=== PATIENT | female | born 1990 | race Caucasian/White ===

== ENCOUNTER 2018-08-23 21:46 | Outpatient (CLI) | payer OTHER ==
--- NOTE | 2018-08-23 22:34 | Ultrasound Report ---
Reason: TEST POSITIVE Procedure Date: 08/23/2018 Accession Number: [id number] / [id number] Procedure: US - OB First Trimester CPT Code: FULL RESULT: EXAM: FIRST TRIMESTER OBSTETRIC ULTRASOUND (Less than 11 weeks) EXAM DATE: 08/23/2018 10:17 PM. CLINICAL HISTORY: TEST POSITIVE. LMP: 06/08/2018. COMPARISONS: None. TECHNIQUE: Transabdominal and transvaginal ultrasound examination with static image documentation. CLINICAL DATES: EGA 10 weeks 6 days with JOSE RAUL 03/17/2019 based on provider dating. ASSESSMENT: Gestational Sac: Single intrauterine. Mean gestational sac diameter: 99 mm. Embryo: CRL (crown-rump length) 36 mm = 10 weeks 2 days. Cardiac activity: 169 beats per minute. Yolk sac: 6.6 mm. Amniotic fluid: Not accurately assessed at this gestational age. Early placenta: Not visible at this gestational age. Other: No perigestational fluid collection demonstrated. MATERNAL STRUCTURES: Uterus: Anteverted. Unremarkable. Cervix: Closed. Right Ovary/Adnexa: The ovary measures 3.6 x 2.4 x 1.7 cm, volume 8 cc. 2 cm right corpus luteum.. Left Ovary/Adnexa: The ovary measures 3.9 x 2.9 x 2.2 cm, volume 13 cc. Unremarkable. Free Fluid: None. Other: None. IMPRESSION: 1. Single viable intrauterine at EGA 10 weeks 2 days with JOSE RAUL 03/19/2019 based on crown-rump length. 2. Assigned dating is JOSE RAUL 03/19/2019 based on current ultrasound. RADIA ADDENDUM: 08/23/18 22:36 The above findings were discussed with Kymberly Mendoza by Dr. Marcello Burks at 10:36 PM hrs on 08/23/2018.
== END 2018-08-23 21:47 | disposition home or self-care (01) ==
LOC: DI 21:46
PROVIDERS: ATTEND Registered Nurse
DX: Z32.01 Encounter for pregnancy test, result positive (principal); Z3A.10 10 weeks gestation of pregnancy
CPT/HCPCS: 76801

== ENCOUNTER 2018-09-08 14:10 | Outpatient (CLI) | payer OTHER ==
[2018-09-08 15:24] LABS: MUDS CUTOFF CONCENTRATIONS CUTOFF CONC BELOW:
[2018-09-08 15:59] LABS: AMPHETAMINE SCREEN,URINE NEGATIVE (NEGATIVE); BENZODIAZEPINES SCREEN, URINE NEGATIVE (NEGATIVE); COCAINE SCREEN URINE NEGATIVE (NEGATIVE); METHADONE SCREEN, URINE NEGATIVE (NEGATIVE); METHAMPHETAMINES SCREEN, URINE NEGATIVE (NEGATIVE); OPIATE SCREEN, URINE NEGATIVE (NEGATIVE); OXYCODONE SCREEN, URINE NEGATIVE (NEGATIVE); PROPOXYPHENE SCREEN, URINE NEGATIVE (NEGATIVE); TRICYCLIC ANTIDEPRESSANT,URINE NEGATIVE (NEGATIVE)
== END 2018-09-08 23:59 | disposition home or self-care (01) ==
LOC: LAB.R 14:10
PROVIDERS: ATTEND Registered Nurse
DX: Z33.1 Pregnant state, incidental (principal)
CPT/HCPCS: 80306

== ENCOUNTER 2018-09-09 12:00 | Outpatient (CLI) | payer OTHER ==
[2018-09-09 19:54] LABS: BASOPHILS % (AUTO) 0.3 %; EOSINOPHILS % (AUTO) 0.3 %; HGB - HEMOGLOBIN 12.6 g/dL (12.0-16.0); LYMPHOCYTES # (AUTO) 1.2 10^3/uL (1.5-3.5); LYMPHOCYTES % (AUTO) 12.6 %; MEAN CORPUSCULAR HEMOGLOBIN 28.6 pg (27.0-31.0); MEAN CORPUSCULAR HGB CONC 34.6 g/dL (32.0-36.0); MEAN CORPUSCULAR VOLUME 82.6 fL (81.0-99.0); MEAN PLATELET VOLUME 8.9 fL (7.9-10.8); MONOCYTES # (AUTO) 0.4 10^3/uL (0.0-1.0); MONOCYTES % (AUTO) 4.3 %; NEUTROPHILS # (AUTO) 7.6 10^3/uL (1.5-6.6); NEUTROPHILS % (AUTO) 82.5 %; PLT - PLATELET COUNT 260 10^3/uL (130-450); RED CELL DISTRIBUTION WIDTH 13.6 % (12.0-15.0); WHITE BLOOD COUNT 9.2 x10^3/uL (4.8-10.8)
[2018-09-10 12:02] LABS: HEPATITIS B SURFACE ANTIGEN NON-REACTIVE (NON-REACTIVE); HEPATITIS C ANTIBODY NON-REACTIVE (NON-REACTIVE)
[2018-09-10 13:20] LABS: HIV AG/AB 4TH GEN NON-REACTIVE (NON-REACTIVE)
== END 2018-09-09 23:59 | disposition home or self-care (01) ==
LOC: LAB.N 12:00
PROVIDERS: ATTEND Registered Nurse
DX: Z33.1 Pregnant state, incidental (principal)
CPT/HCPCS: 36415; 81599; 85025; 86592; 86762; 86803; 86850; 86900; 86901; 87340; 87389

== ENCOUNTER 2018-09-10 10:17 | Outpatient (CLI) | payer OTHER | END 2018-09-10 23:59 | disposition home or self-care (01) | LOC: LAB.R 10:17 | PROVIDERS: ATTEND Registered Nurse | DX: Z33.1 Pregnant state, incidental (principal) | CPT/HCPCS: 87491; 87591 ==

== ENCOUNTER 2018-11-29 13:37 | Outpatient (CLI) | payer OTHER ==
--- NOTE | 2018-12-02 11:30 | Ultrasound Report ---
Reason: ENCOUNTER FOR OTHER SPECIFIED SCREENING Procedure Date: 11/29/2018 Accession Number: [id number] / [id number] Procedure: US - OB Detailed Eval CPT Code: FULL RESULT: EXAM: COMPLETE OBSTETRICAL ULTRASOUND EXAM DATE: 11/29/2018 03:58 PM. CLINICAL HISTORY: anatomic survey. COMPARISON: None. TECHNIQUE: Real-time sonographic evaluation of the fetus performed by the rolling mill operator. Multiple sales representative womens health static images were saved for review. DATING: Established EGA 24 weeks 4 days with JOSE RAUL 03/17/2019 based on working due date. EGA 24 weeks 2 days with JOSE RAUL 03/19/2019 based on first ultrasound. EGA 24 weeks 2 days with JOSE RAUL 03/19/2019 based on the current ultrasound. GENERAL EVALUATION Oh . Cardiac activity: 139 bpm. movement: Visualized. Presentation: Vertex. Placenta: Laterally to the left and partially anterior position. No evidence for previa. Umbilical cord: 3 vessel cord. Central placental cord origin. Amniotic fluid: Subjectively normal. MVP 4.5 cm. BIOMETRY Bi-Parietal Diameter (BPD): 5.9 cm, 24 weeks 2 days Head Circumference (HC): 22.3 cm, 24 weeks 3 days Abdominal Circumference (AC): 19.7 cm, 24 weeks 2 days Femur Length (FL): 4.3 cm, 24 weeks 1 day Estimated Weight: 677 g, 28th percentile for 24 weeks 4 days. ANATOMY The intracranial structures, profile, face/nose/lips, spine, 4 chamber heart and outflow tracts, stomach, abdominal wall and cord insertion, diaphragm, kidneys, bladder, and extremities were visualized and demonstrate no abnormality. MATERNAL STRUCTURES Uterus: Unremarkable. Cervix: Long and closed. Transabdominal length 4.4 cm. Right ovary/adnexa: Unremarkable. Left ovary/adnexa: Unremarkable. Free fluid: None. IMPRESSION: 1. Ho live intrauterine with gestational age 24 weeks 4 days based on working due date. 2. Estimated weight is within expected limits for assigned dating. 3. Normal anatomic survey. No anatomic abnormalities are detected at this time. RADIA
== END 2018-11-29 13:38 | disposition home or self-care (01) ==
LOC: DI 13:37
PROVIDERS: ATTEND Nurse Practitioner Obstetrics & Gynecology
DX: Z36.89 Encounter for other specified antenatal screening (principal)
CPT/HCPCS: 76811

== ENCOUNTER 2018-12-23 08:00 | Outpatient (CLI) | payer OTHER ==
[2018-12-23 18:54] LABS: HGB - HEMOGLOBIN 11.8 g/dL (12.0-16.0); MEAN CORPUSCULAR HEMOGLOBIN 27.6 pg (27.0-31.0); MEAN CORPUSCULAR HGB CONC 33.5 g/dL (32.0-36.0); MEAN CORPUSCULAR VOLUME 82.5 fL (81.0-99.0); RED BLOOD COUNT 4.27 10^6/uL (4.20-5.40); RED CELL DISTRIBUTION WIDTH 13.7 % (12.0-15.0)
== END 2018-12-23 23:59 | disposition home or self-care (01) ==
LOC: LAB.N 08:00
PROVIDERS: ATTEND Nurse Practitioner Obstetrics & Gynecology
DX: Z36.89 Encounter for other specified antenatal screening (principal)
CPT/HCPCS: 36415; 82950; 85027; 86850

== ENCOUNTER 2018-12-27 08:00 | Outpatient (CLI) | payer OTHER | END 2018-12-27 23:59 | disposition home or self-care (01) | LOC: LAB.R 08:00 | PROVIDERS: ATTEND Nurse Practitioner Obstetrics & Gynecology | DX: R82.79 Other abnormal findings on microbiological examination of urine (principal) | CPT/HCPCS: 87086 ==

== ENCOUNTER 2019-02-22 08:00 | Outpatient (CLI) | payer OTHER ==
[2019-02-22 22:15] LABS: TRICHOMONAS VAGINALIS DNA NEGATIVE (NEGATIVE)
== END 2019-02-22 23:59 | disposition home or self-care (01) ==
LOC: LAB.R 08:00
PROVIDERS: ATTEND Nurse Practitioner Obstetrics & Gynecology
DX: Z36.89 Encounter for other specified antenatal screening (principal)
CPT/HCPCS: 87491; 87591; 87661; 87797

== ENCOUNTER 2019-03-10 07:27 | Inpatient (IN) | payer OTHER ==
[2019-03-10] MEDS ORDERED: SODIUM CHLORIDE FLUSH 0.9% 10 ML SYRINGE ONE (07:56)
[2019-03-10] MEDS ORDERED: SODIUM CHLORIDE FLUSH 0.9% 10 ML SYRINGE IVP PRN (08:36)
[2019-03-10] MEDS ORDERED: ONDANSETRON 4 MG/2 ML VIAL IVP PRN ×2 (08:36→14:15)
--- NOTE | 2019-03-10 08:40 | HISTORY & PHYSICAL EXAMINATION ---
Admit History - Visit Reason Visit Reason: Other - : 4 Parity: 3 Premature: 0 Ectopic: 0 : 0 Care: positive: [facility] Risk/History: positive: None Complications This : positive: None Smoking Status: Never smoker - Mother's Labs Mother's Blood Type: positive: O Mother's RH: positive: Positive GBS: positive: Group B Step Negative Rubella Status: positive: Immune Review of Systems - Constitutional Constitutional: denies: Fatigue, Fever, Chills, Malaise - Eyes Eyes: denies: Blurred vision, Spots in vision, Dipolpia - Cardiovascular Cariovascular: denies: Irregular heart rate, Palpitations, Chest pain, Edema - Respiratory Respiratory: denies: SOB at rest - Gastrointestinal Gastrointestinal: denies: Constipation, Diarrhea, Nausea, Vomiting - Integumentary Integumentary: denies: Rash, Pruritis - Neurological Neurological: denies: Headache Physical - Abdominal Exam Contraction Frequency (min/apart): intermittnet tai hernandez contractions Contraction Intensity: positive: Mild Uterine Resting Tone: positive: Soft - Monitoring Heart Rate Baseline: 140 Strip Review: positive: Category I - Presentation Presentation: positive: Vertex - Vaginal Exam Membranes: positive: Membranes ruptured Dilation (in cm): 2-3 Effacement (%): 50 Station: positive: -1 Cervical Position: positive: Posterior - Speculum Exam Speculum Exam Performed: positive: No Plan for Labor - Plan For Labor I expect patient to be DC'd or transferred within 96 hours.: Yes Plan for Labor: HPI: This 28yo @ 39.0wks gestation by LMP c/w 10.2wk U/S presents for elective induction of labor. She has been a patient of [facility] for duration of her which has been uneventful. She was admitted to [facility] for active management with AROM on admission. LMP: 06/10/2019 Initial ultrasound 08/23/2018 @ 10.2wks gestation - agrees Serial exams - agree OB Hx: G1: 06/30/2009. 40.0wks. . epidural. Female. G2: 11/17/2014. 39.0wks. . epidural. Male. G3: 07/31/2016. 39.0wks. . epidural. Female. Subchorionic tear PMHx: None. Surgical Hx: Appendectomy Social Hx: Never smoker. No ETOH of IVDA. James Family hx: Breast cancer - mother, aunt Medications: Ranitidine bid; PNV Allergies: NKDA labs: Blood type O positive; antibody neg Hgb 11.8; Hct 35.2; PLT 256 Rubella immune RPR non-reactive Hep B negative GC/CT negative HIV neg UTOX neg 1 hour GTT 91 GBS negative Immunizations: influenza - 09/08/2018 Tdap 12/27/2018 Ultrasounds: Initial ultrasound @ 10.2 wks consistent with LMP dating. FAS 11/29/2018 WNL. Placenta anterior, left lateral, no previa. HARSHA WNL. 3VC. Size c/w dating Physical Exam: Normocephalic, atraumatic Heart RRR w/o M/G/R Lungs CTAB Abdomen gravid, soft, nontender. EFW 3300g SVE 2-3/50/-1, posterior, medium consistency, vertex. Contractions intermittent BH contractions. AROM moderate amount of clear fluid. FHR baseline 140s, moderate variability, + accels, no decels Mood is good. Assessment: 28yo @ 39.0wks gestation by LMP GBS neg Plan: Continuous monitoring Expectant management after AROM x 2 hours - administer 50mcg BC misoprostol if contractions have not become regular and consistent Encouraged ambulation and frequent position changes Epidural per maternal request. Anticipate spontaneous vaginal delivery Reviewed plan of care with patient, , and labor RN at the bedside who are all in agreement with above plan and deny further questions or concerns at this time.
[2019-03-10 08:51] LABS: BASOPHILS % (AUTO) 0.3 %; EOSINOPHILS # (AUTO) 0.1 10^3/uL (0.0-0.7); EOSINOPHILS % (AUTO) 0.7 %; HGB - HEMOGLOBIN 10.5 g/dL (12.0-16.0); LYMPHOCYTES # (AUTO) 1.7 10^3/uL (1.5-3.5); LYMPHOCYTES % (AUTO) 18.4 %; MEAN CORPUSCULAR HEMOGLOBIN 26.1 pg (27.0-31.0); MEAN CORPUSCULAR HGB CONC 32.2 g/dL (32.0-36.0); MEAN CORPUSCULAR VOLUME 81.1 fL (81.0-99.0); MEAN PLATELET VOLUME 11.2 fL (7.9-10.8); MONOCYTES # (AUTO) 0.7 10^3/uL (0.0-1.0); MONOCYTES % (AUTO) 7.1 %; NEUTROPHILS # (AUTO) 6.7 10^3/uL (1.5-6.6); NEUTROPHILS % (AUTO) 73.2 %; PLT - PLATELET COUNT 222 10^3/uL (130-450); RED BLOOD COUNT 4.02 10^6/uL (4.20-5.40); RED CELL DISTRIBUTION WIDTH 13.6 % (12.0-15.0); WHITE BLOOD COUNT 9.2 x10^3/uL (4.8-10.8)
[2019-03-10] MEDS ORDERED: LACTATED RINGERS 1,000 ML IV SCH ×2 (09:00→17:00)
[2019-03-10] MEDS ORDERED: SODIUM CHLORIDE FLUSH 0.9% 10 ML SYRINGE IVP SCH (09:00)
[2019-03-10] MEDS ORDERED: miSOPROStol 100 MCG TABLET BC SCH (10:35)
[2019-03-10] MEDS ORDERED: ROPIVACAINE 0.2% PF 20 ML AMPULE ONE (13:48)
[2019-03-10] MEDS ORDERED: fentaNYL 100 MCG/2 ML VIAL ONE (13:48)
[2019-03-10] MEDS ORDERED: fent/BUPIV 2 MCG/0.125% 250 ML EP ONE (14:02)
[2019-03-10] MEDS ORDERED: NALOXONE 0.4 MG/ML VIAL IVP PRN (14:15)
[2019-03-10] MEDS ORDERED: fent/BUPIV 2 MCG/0.125% 250 ML EP PRN (14:15)
[2019-03-10] MEDS ORDERED: ePHEDrine 50 MG/ML VIAL IVP PRN (14:15)
[2019-03-10] MEDS ORDERED: NALBUPHINE 10 MG/ML AMP IVP PRN (14:15)
[2019-03-10] MEDS ORDERED: LACTATED RINGERS 500 ML IV ONE (14:15)
[2019-03-10] MEDS ORDERED: diphenhydrAMINE INJ 50 MG/ML VIAL IVP PRN (14:15)
[2019-03-10] MEDS ORDERED: METOCLOPRAMIDE 10 MG/2 ML VIAL IVP PRN (14:15)
--- NOTE | 2019-03-10 14:24 | ANESTHESIA ---
Pre-Anesthesia VS, & Labs - Diagnosis term labor, IUP - Procedure labor epidural placement Height 5 ft 5 in Weight (kg) 77.564 kg - NPO Last Food Intake: full lunch at 1230 - Is Patient ?: Yes - Lab Results Current Lab Results: Laboratory Tests 03/10/19 08:25: WBC 9.2, RBC 4.02 L, Hgb 10.5 L, Hct 32.6 L, MCV 81.1, MCH 26.1 L, MCHC 32.2, RDW 13.6, Plt Count 222, MPV 11.2 H, Neut # (Auto) 6.7 H, Lymph # (Auto) 1.7, Angelina # (Auto) 0.7, Eos # (Auto) 0.1, Baso # (Auto) 0.0, Absolute Nucleated RBC 0.00, Nucleated RBC % 0.0 Fish Bones: 03/10/19 08:25 Home Medications and Allergies Active Medications Diphenhydramine HCl (Benadryl Inj) 12.5 - 25 mg IVP Q6HR PRN PRN Reason: ITCHING Ephedrine Sulfate () 5 mg IVP Q5M PRN PRN Reason: For SBP<100;give until SBP>100 Lactated Ringer's (Lr) 1,000 mls @ 100 mls/hr IV .Q10H JEISON Fentanyl/Bupivacaine/Sodium Chlor (Fent/Bupiv 2 Mcg/0.125%) 250 mls @ 0 mls/hr EP .Q0M PRN; Protocol PRN Reason: PAIN Lactated Ringer's (Lr) 500 mls @ 999 mls/hr IV ONCE ONE Stop: 03/10/19 14:45 Metoclopramide HCl (Reglan Inj) 10 mg IVP Q6HR PRN PRN Reason: Nausea / Vomiting Misoprostol (Cytotec) 50 mcg BC Q4HR JEISON Last Admin: 03/10/19 10:37 Dose: 50 mcg Nalbuphine HCl (Nubain) 2.5 - 5 mg IVP Q4H PRN PRN Reason: ITCHING Naloxone HCl (Narcan) 0.1 mg IVP Q2M PRN PRN Reason: RR<8 Ondansetron HCl (Zofran Inj) 4 mg IVP Q4HR PRN PRN Reason: Nausea / Vomiting Ondansetron HCl (Zofran Inj) 4 mg IVP Q6HR PRN PRN Reason: Nausea / Vomiting Sodium Chloride (Normal Saline Flush 0.9%) 10 ml IVP 0100,0900,1700 JEISON Sodium Chloride (Normal Saline Flush 0.9%) 10 ml IVP PRN PRN PRN Reason: NEEDED PER PROVIDER ORDERS Last Admin: 03/10/19 08:42 Dose: 10 ml Allergies/Adverse Reactions: Allergies Allergy/AdvReac Type Severity Reaction Status Date / Time No Known Drug Allergies Allergy Verified 03/10/19 09:06 Anes History & Medical History - Anesthetic History Anesthesia Complications: reports: No previous complications Family history of Anesthesia Complications: Denies Family history of Malignant Hyperthermia: Denies - Medical History Smoking Status: Never smoker - Surgical History General: Appendectomy - Obstetrical History : 4 Parity: 3 Events: positive: None Complications: positive: None OB Anesthesia History: hx of uncomplicated epidurals x3 for vaginal deliveries Exam General: Alert, Oriented x3, Cooperative Dental: WNL Mouth Opening: Greater than 4 Fingerbreadths Neck Mobility: Normal Mallampati classification: II Thyromental Distance: 4-6 cm Respiratory: No respiratory distress Cardiovascular: Regular rate Neurological: Normal speech Mental/Cognitive Status: Alert/Oriented X3, Normal for patient Cognitive Status: Within normal limits Plan Anesthesia Type: Epidural Consent for Procedure(s) Verified and Reviewed: Yes Code Status: Attempt Resuscitation ASA classification: 2-Mild systemic disease Is this case an emergency?: No
[2019-03-10] MEDS ORDERED: OXYTOCIN/DEXTROSE 5 % 30 UNIT/500 ML BAG IV SCH ×2 (14:35→18:00)
--- NOTE | 2019-03-10 16:10 | CONSULTATION NOTE ---
Consultation Report: Call to OB for new low pelvis midline pain. Sensory level appreciated at T8 and pt states legs are heavy. BP 122/88. 5cc 2% Lidocaine slowly administered. Pt states pain is still there but much less intense after 4 minutes post bolus. Pt was rechecked at this time and found to be complete in dilation. Provider notified via nursing. Pt agrees to plan to push at this point. Will be available outside room for any additional needs.
[2019-03-10] MEDS ORDERED: WITCH HAZEL/GLYCERIN 1 PAD TOP PRN (16:47)
[2019-03-10] MEDS ORDERED: HYDROCORTISONE 1% CREAM 28 GM TUBE PR PRN (16:47)
[2019-03-10] MEDS ORDERED: CABERGOLINE 0.5 MG TABLET PO ONE (16:47)
--- NOTE | 2019-03-10 16:47 | DELIVERY NOTE ---
Delivery Note - Labor Labor: positive: Induced by ARM - Infant Delivery Method Delivery Method: positive: Spontaneous vaginal delivery - Cervical Ripening Method Cervical Ripening Method: positive: Misoprostil - Presentation Presentation: positive: Vertex, OSN - left occiput anterior - Nuchal Cord Nuchal Cord: positive: Present, Reduced - Amniotic Fluid Description Amniotic Fluid Description: positive: Clear - Episiotomy Type Episiotomy Type: positive: None - Laceration Laceration: positive: None - Delivery Outcome Delivery Outcome: positive: Livebirth - [place]: positive: Placed in direct skin contact with mother, Stimulated, Warmed, [place] used sex: positive: Male - Cord Cord: positive: 3 vessels - Placenta Placenta: positive: Intact, Spontaneous - Estimated Blood Loss Estimated Blood Loss (in cc): 350 - Post Delivery Events Post Delivery Events: positive: No post delivery events - Delivery Comments (Free Text/Narrative) Delivery Comments (Free Text/Narrative): Labor: This 28yo @ 39.0wks gestation by LMP presented on 03/10/2019 at 0730 for elective IOL. Upon arrival her cervix was 2-3/50/-1, posterior, vertex. AROM occurred at approximately 0830 and was noted to be a moderate amount of clear fluid. 50mcg BC misoprostol administered x 1 for pre-induction cervical ripening. FHR pattern demonstrated a Category I tracing throughout labor. Normal labor course. Epidural placed per maternal request. Patient progressed to c/c/+2 at 1600 and began to spontaneously push at 1611. : Normal of viable male at 1612 on 03/10/2019. Nuchal cord x 1 easily reduced. Pitocin administered via IV for hemostasis. The was placed on maternal abdomen, stimulated, dried, and placed skin to skin. Apgars 9/10 at 1 and 5 min respectively. The umbilical cord was allowed to stop pulsating at which time it was doubly clamped by CNM and cut by FOB. Cord blood was obtained. Placenta delivered spontaneously and intact at 1617. 3VC. EBL 350mL. Uterine fundus firm and there is no excessive bleeding. The perineum, vagina, and cervix were inspected and found to be intact. Family bonding well. Both mother and baby were left in stable condition.
[2019-03-10] MEDS: ACETAMINOPHEN 500 MG TABLET PO SCH (20:26)
[2019-03-10] MEDS: IBUPROFEN 800 MG TABLET PO SCH (20:27)
[2019-03-10] MEDS: DOCUSATE SODIUM 100 MG CAPSULE PO SCH (21:20)
[2019-03-11] MEDS: IBUPROFEN 800 MG TABLET PO SCH ×2 (02:34→08:49)
[2019-03-11] MEDS: ACETAMINOPHEN 500 MG TABLET PO SCH (04:45)
--- NOTE | 2019-03-11 07:06 | PROVIDER PROGRESS NOTE ---
Subjective - Subjective Subjective: FINAL PROGRESS NOTE: S: Bonding well with baby. She is bottle feeding her baby as she has done with her other children. Took cabergoline yesterday evening in hopes of preventing her milk from coming in. Reports she was terribly engorged following the of her other children when her milk came in. Bleeding decreased and is light. Pain well controlled with oral medications. supportive at the bedside. O: BP 100/52, T 36.5, HR 56, RR 18 Heart RRR w/o M/G/R, lungs CTAB, abdomen soft and nontender with fundus firm at U-2, bilateral LE's no edema. A: 28yo -->P3 PPD#3 s/p TSVD of viable male infant perineum intact bottle feeding P: Reviewed pp self care and warning s/sx and when to present. Advised PO ibuprofen and tylenol for pain management PRN Return in 3 weeks for routine pp visit or sooner PRN. Pt verbalized understanding and agrees to above plan. present at bedside for discharge teaching. Objective - Vital Signs/Intake & Output Vital Signs: Vital Signs x48h Temp Pulse Resp BP Pulse Ox 03/11/19 05:13 36.5 C 56 L 18 100/52 L 100 03/11/19 01:40 36.6 C 56 L 18 92/44 L 97 Intake & Output: Intake & Output 03/08/19 03/09/19 03/10/19 03/11/19 23:59 23:59 23:59 23:59 Intake Total 2450 Output Total 2024 Balance 425 - Lab Results Fish Bones: 03/10/19 08:25 Other Labs: Lab Results x24hrs 03/10/19 Range/Units 08:25 WBC 9.2 (4.8-10.8) x10^3/uL RBC 4.02 L (4.20-5.40) 10^6/uL Hgb 10.5 L (12.0-16.0) g/dL Hct 32.6 L (37.0-47.0) % MCV 81.1 (81.0-99.0) fL MCH 26.1 L (27.0-31.0) pg MCHC 32.2 (32.0-36.0) g/dL RDW 13.6 (12.0-15.0) % Plt Count 222 (130-450) 10^3/uL MPV 11.2 H (7.9-10.8) fL Neut # (Auto) 6.7 H (1.5-6.6) 10^3/uL Lymph # (Auto) 1.7 (1.5-3.5) 10^3/uL Cottle # (Auto) 0.7 (0.0-1.0) 10^3/uL Eos # (Auto) 0.1 (0.0-0.7) 10^3/uL Baso # (Auto) 0.0 (0.0-0.1) 10^3/uL Absolute Nucleated RBC 0.00 x10^3/uL Nucleated RBC % 0.0 /100WBC
--- NOTE | 2019-03-11 07:11 | Discharge Plan ---
Discharge Plan Problem Reviewed?: Yes Disposition: Home, Self Care Condition: Good Diet: Regular Activity Restrictions: No Restrictions Shower Restrictions: No Driving Restrictions: No No Smoking: If you smoke, Please STOP! Call for help. Follow-up with: Felicita Griffin CNM, ARNP [Provider Admit Priv/Credential] -
--- NOTE | 2019-03-11 07:27 | DISCHARGE SUMMARY ---
Physician: TIFFANY Trevino DATE OF ADMISSION: 03/10/2019 DATE OF DISCHARGE: 03/11/2019 DIAGNOSES ON ADMISSION 1. A 28-year-old G4, P3-0-0-3 at 39.0 weeks' gestation. 2. Group B Streptococcus negative. 3. Elective induction of labor with preinduction cervical ripening. DIAGNOSES ON DISCHARGE 1. A 28-year-old G4, P4-0-0-4, day #1, status post spontaneous vaginal delivery on 03/10/2019. 2. Bottle feeding. 3. Normal recovery. BRIEF HISTORY: This is a patient of [facility] who presented on 03/10/2019 at 0730 for elective induction of labor. AROM occurred at approximately 8:30 and was noted to be of a moderate amount of clear fluid. She was give 50 mcg of BC misoprostol administered x1 for preinduction cervical ripening. Normal labor course. Epidural placed per maternal request. The patient progressed to deliver a viable male at 1612 on 03/10/2019. Nuchal cord x1, easily reduced. Apgars 9 and 10 at one and five minutes, respectively. EBL 350 mL. She has been doing well in her course. She is ambulating and tolerating a regular diet. She is urinating without difficulty and her lochia is normal. Her pain is well controlled with oral medications. She plans to follow up in 1 week for support visit and in 3 weeks for routine pp visit with myself at [facility]. SHe has been given precautions to call if she has any worsening fever, chills, abdominal pain, increased vaginal bleeding or foul smelling vaginal lochia. TD: 03/11/2019 07:12 MTDD
[2019-03-11] MEDS: DOCUSATE SODIUM 100 MG CAPSULE PO SCH (08:56)
[2019-03-11 17:15] VITALS: BP 102/52
== END 2019-03-11 17:00 | disposition home or self-care (01) | DRG 807 ==
LOC: WFO 07:27 → FBP 07:35 → WFO 08:35 → FBP 08:36
PROVIDERS: ADMIT Nurse Practitioner Obstetrics & Gynecology; ATTEND Nurse Practitioner Obstetrics & Gynecology
PROC: 10E0XZZ Delivery of Products of Conception, External Approach (ICD-10-PCS; principal; 2019-03-10)
PROC: 10907ZC Drainage of Amniotic Fluid, Therapeutic from Products of Conception, Via Natural or Artificial Opening (ICD-10-PCS; 2019-03-10)
DX: O69.81X0 Labor and delivery complicated by cord around neck, without compression, not applicable or unspecified (principal); Z37.0 Single live birth; Z3A.39 39 weeks gestation of pregnancy
CPT/HCPCS: 85025; A9270; J7120